=== PATIENT | female | born 1945 | race Caucasian/White ===

== ENCOUNTER 2016-08-14 12:48 | Observation (INO) | payer MEDICARE, OTHER | END 2016-08-16 12:15 | disposition other institution (70) | LOC: MS 12:48 | PROVIDERS: ADMIT Family Medicine | DX: I87.2 Venous insufficiency (chronic) (peripheral) (principal); L03.116 Cellulitis of left lower limb; M19.90 Unspecified osteoarthritis, unspecified site; J44.9 Chronic obstructive pulmonary disease, unspecified; I73.9 Peripheral vascular disease, unspecified; I10 Essential (primary) hypertension; E11.9 Type 2 diabetes mellitus without complications; Z80.9 Family history of malignant neoplasm, unspecified; Z82.49 Family history of ischemic heart disease and other diseases of the circulatory system; Z88.0 Allergy status to penicillin; Z79.899 Other long term (current) drug therapy; Z79.82 Long term (current) use of aspirin; Z79.1 Long term (current) use of non-steroidal anti-inflammatories (NSAID); Z79.84 Long term (current) use of oral hypoglycemic drugs | CPT/HCPCS: 36415; 73590; 80053; 80061; 82962; 83036; 87040; 96361; 96365; 96366; 96367; 96372; 99070; G0378 ==

== ENCOUNTER 2016-08-14 12:48 | Inpatient (IN) | payer MEDICARE, OTHER ==
[~2016-08-14] VITALS: Ht 157.5 cm; Wt 66.0 kg
[2016-08-14 13:49] LABS: HEMATOCRIT 36.5 % (34-45); HEMOGLOBIN 12.6 g/dL (11.2-15.7); MEAN CORPUSCULAR HEMOGLOBIN 30.7 pg (27.0-33.0); MEAN CORPUSCULAR HGB CONC 34.5 g/dL (32.0-36.0); MEAN PLATELET VOLUME 10.2 fl (7.5-11.5); RED BLOOD COUNT 4.1 x10_6/uL (3.9-5.2); RED CELL DISTRIBUTION WIDTH 12.6 % (11.7-14.4)
[2016-08-14 14:05] LABS: ALBUMIN 4.2 gm/dL (3.4-5.0); ALKALINE PHOSPHATASE 76 U/L (50-136); ALT/SGPT 24 U/L (3.5-33.9); AST/SGOT 31 U/L (7.04-26.96); BILIRUBIN,TOTAL 0.75 mg/dL (0.0-1.0); BLOOD UREA NITROGEN 14 mg/dL (7-18); CALCIUM 9.9 mg/dL (8.7-10.7); CARBON DIOXIDE 26 mmol/L (21-32); CREATININE 0.6 mg/dL (0.6-1.3); GLUCOSE,RANDOM 225 mg/dL (70-99); POTASSIUM 3.9 mmol/L (3.5-5.1); SODIUM 133 mmol/L (136-145); TOTAL PROTEIN 7.4 gm/dL (6.4-8.2)
[2016-08-15 07:13] LABS: AHDL CHOLESTEROL 34 mg/dL (>40); ALBUMIN 3.4 gm/dL (3.4-5.0); ALKALINE PHOSPHATASE 62 U/L (50-136); ALT/SGPT 18 U/L (3.5-33.9); AST/SGOT 21 U/L (7.04-26.96); BILIRUBIN,TOTAL 0.52 mg/dL (0.0-1.0); BLOOD UREA NITROGEN 10 mg/dL (7-18); CALCIUM 8.7 mg/dL (8.7-10.7); CARBON DIOXIDE 27 mmol/L (21-32); CHOLESTEROL 120 mg/dL (0-200); CREATININE 0.6 mg/dL (0.6-1.3); GLUCOSE,RANDOM 157 mg/dL (70-99); LDL CHOLESTEROL 70 mg/dL (0-99); SODIUM 141 mmol/L (136-145); TOTAL PROTEIN 6.2 gm/dL (6.4-8.2); TRIGLYCERIDES 97 mg/dL (30-200)
[2016-08-16 07:06] LABS: HEMATOCRIT 33.1 % (34-45); HEMOGLOBIN 11.2 g/dL (11.2-15.7); MEAN CORPUSCULAR HEMOGLOBIN 30.3 pg (27.0-33.0); MEAN CORPUSCULAR HGB CONC 33.8 g/dL (32.0-36.0); MEAN CORPUSCULAR VOLUME 89.5 fL (79-95); MEAN PLATELET VOLUME 9.7 fl (7.5-11.5); RED BLOOD COUNT 3.7 x10_6/uL (3.9-5.2); RED CELL DISTRIBUTION WIDTH 12.5 % (11.7-14.4); WHITE BLOOD COUNT 6.7 x10_3/uL (4.0-10.0)
== END 2016-08-18 12:42 | disposition home or self-care (01) | DRG 300 ==
LOC: MS 12:48
PROVIDERS: ADMIT Family Medicine
DX: I87.2 Venous insufficiency (chronic) (peripheral) (principal); L03.116 Cellulitis of left lower limb; M19.90 Unspecified osteoarthritis, unspecified site; I73.9 Peripheral vascular disease, unspecified; I10 Essential (primary) hypertension; E11.9 Type 2 diabetes mellitus without complications; Z80.9 Family history of malignant neoplasm, unspecified; Z82.49 Family history of ischemic heart disease and other diseases of the circulatory system; Z88.0 Allergy status to penicillin; J44.9 Chronic obstructive pulmonary disease, unspecified; Z79.899 Other long term (current) drug therapy; Z79.82 Long term (current) use of aspirin; Z79.1 Long term (current) use of non-steroidal anti-inflammatories (NSAID); Z79.84 Long term (current) use of oral hypoglycemic drugs
CPT/HCPCS: 36415; 73590; 80053; 80061; 80202; 82962; 83036; 87040; 99070; G0378